=== PATIENT | female | born 1985 | race Caucasian/White ===

== ENCOUNTER 2017-06-22 19:39 | Emergency (ER) | payer BC ==
[~2017-06-22] VITALS: Ht 167.6 cm; Wt 68.0 kg
--- NOTE | ~2017-06-22 | EKG ---
PATIENT: ZELDA HARRELL UNIT #: [id number] Ventricular Rate: 82 BPM Atrial Rate: 82 BPM P-R Interval: 100 ms QRS Duration: 82 ms Q-T Interval: 410 ms QTC Calculation(Bezet): 479 ms P [place]: 3 degrees Calculated R [place]: 72 degrees Calculated T [place]: 41 degrees Diagnosis Line: Sinus rhythm with short DC Diagnosis Line: Otherwise normal ECG Diagnosis Line: No previous ECGs available Diagnosis Line: Confirmed by ORQUIDEA BRIGHT MD ([id number]) on Diagnosis Line: 06/25/2017 3:24:03 PM INTERPRETING MD: DEANGELO CASAS
[~2017-06-22 19:39] MED LIST: K-DUR20 ME1 PO; NO MEDICATIONS; ZOFRAN ODT4 MG/UDTAB PO
[2017-06-22] MEDS ORDERED: VYVANSE20 MG PO (19:49)
[2017-06-22 20:53] LABS: BASOPHIL% 0.4 % (0-2.5); DIFF IND NO; EOSINOPHIL% 0.3 % (0.0-7.0); HEMATOCRIT 40.6 % (35.0-45.0); HEMOGLOBIN 14.3 gm/dL (12.0-16.0); LYMPHOCYTE# 1.3 X10e3 (1.0-3.5); LYMPHOCYTE% 12.6 % (17.0-45.0); MEAN CELL VOLUME 92.9 FL (83-96); MEAN CORPUSCULAR HEMOGLOBIN 32.7 PG (28-34); MEAN CORPUSCULAR HGB CONC 35.2 g/dL (30-36); MEAN PLATELET VOLUME 9.8 FL (6.5-11.5); MONOCYTE# 0.4 X10e3 (0-1.0); MONOCYTE% 3.8 % (3.0-12.0); NEUTROPHIL# 8.3 X10e3 (1.5-7.1); NEUTROPHIL% 82.9 % (40-75); PLATELET COUNT 233 X10e3 (140-420); RED BLOOD COUNT 4.37 X10e (3.90-5.30); RED CELL DISTRIBUTION WIDTH 12.7 % (11.0-15.5)
[2017-06-22 21:07] LABS: URINE SOURCE CLEAN CATCH
[2017-06-22 21:08] LABS: ALBUMIN SERUM 4.7 g/dL (3.5-5.0); BILIRUBIN,TOTAL 1.6 mg/dL (0.2-2.0); CALCIUM SERUM 9.4 mg/dL (8.4-10.2); CREATININE SERUM 0.8 mg/dL (0.6-1.4); POTASSIUM 4.4 mmol/L (3.5-5.1)
[2017-06-22 21:11] LABS: URINE APPEARANCE CLEAR; URINE BILIRUBIN NEG (NEG); URINE BLOOD NEG (NEG); URINE COLOR YELLOW; URINE GLUCOSE NEG (NORM); URINE LEUKOCYTE ESTERASE NEG (NEG); URINE NITRATE NEG (NEG); URINE PH 6.5 (5-8); URINE PROTEIN NEG (NEG); URINE SPECIFIC GRAVITY 1.025 (1.003-1.035); URINE UROBILINOGEN 0.2 MG/DL (NORM)
[2017-06-22 21:13] LABS: MICRO INDICATED? NO; URINE KETONE 3+ (NEG)
[2017-06-22 21:19] LABS: AMPHETAMINE POS (NEG); BARBITURATES NEG (NEG); BENZODIAZEPINES NEG (NEG); COCAINE NEG (NEG); MARIJUANA NEG (NEG); OPIATES NEG (NEG); TRICYCLIC ANTIDEPRESSANTS NEG (NEG); U METHADONE NEG (NEG)
== END 2017-06-22 21:57 | disposition home or self-care (01) ==
LOC: SED 19:39
PROVIDERS: Physician Assistant
DX: E86.0 Dehydration (principal); F90.9 Attention-deficit hyperactivity disorder, unspecified type; Z79.899 Other long term (current) drug therapy
CPT/HCPCS: 36415; 80053; 80307; 81003; 84703; 85025; 93005; 99284